=== PATIENT | male | born 1940 | race Caucasian/White ===

== ENCOUNTER 2024-06-13 10:00 | Outpatient (RCR) | payer MEDICARE, SELFPAY ==
[2024-06-02 15:15] LABS: Creatinine* 0.6 mg/dL (0.5-1.5); Estimated Glomerular Filt Rate 95 ml/min
[2024-06-05 16:17] LABS: Hematocrit 41.4 % (37.0-53.0); Hemoglobin* 13.3 gm/dL (13.5-17.5); Immature Granulocytes Abs Auto 0.01 K/uL (0.00-0.30); Immature Granulocytes Pct Auto 0.2 %; Mean Corpuscular HGB Conc 32 gm/dL (32-36); Mean Corpuscular Hemoglobin 29 pg (26-34); Mean Corpuscular Volume 90 fL (80-100); RDW Coefficient of Variation % 13.0 % (11.5-15.5); Red Blood Count 4.58 m/uL (4.30-5.90); White Blood Count* 5.82 K/uL (4.50-11.00)
[2024-06-05 16:30] LABS: Lymphocytes Absolute Auto 0.70 K/uL (0.90-2.90); Slide Review Reflex No
[2024-06-05 16:37] LABS: Albumin* 3.9 g/dL (3.3-5.0)
[2024-06-05 16:38] LABS: Chloride* 100 mmol/L (96-114); Potassium* 4.1 mmol/L (3.6-5.1); Sodium* 135 mmol/L (135-149)
[2024-06-05 16:40] LABS: Anion Gap 13 mEq/L (7-15); Bilirubin Total* 0.3 mg/dL (0.1-1.5); Blood Urea Nitrogen* 19 mg/dL (7-30); Carbon Dioxide* 22 mmol/L (20-32); Creatinine* 0.7 mg/dL (0.5-1.5); Est. Creatinine Clearance* 54.01; Estimated Glomerular Filt Rate 90 ml/min
[2024-06-05 16:41] LABS: Alanine Aminotransferase* 11 U/L (4-50); Alkaline Phosphatase* 95 U/L (40-150); Aspartate Amino Transferase* 13 U/L (12-35); Calcium* 9.4 mg/dL (8.4-10.6); Glucose* 156 mg/dL (60-115); Total Protein* 6.4 g/dL (6.0-8.3)
--- NOTE | 2024-06-06 08:21 | URNOTE ---
Request received for authorization for Carboplatin (J9045), Paclitaxel ([id number]). Prior authorization is not required per [facility] injectable drug list, confirmed with Rep Reema Walters 06/06/24 at 0820. Based on medical necessity and guidelines.
--- NOTE | 2024-06-06 15:46 | ONC.NURNOTE ---
PT referral faxed to [place] [facility] at [phone].
[2024-06-07 10:00] VITALS: BP 105/67; PULSE 74; RESP 16; TEMP 36.4; O2SAT 99
[2024-06-07] MEDS: SODIUM CHLORIDE 0.9 % (FLUSH) 10 ML SYRINGE IVF (11:17)
[2024-06-07] MEDS: ONDANSETRON 2 MG/ML inj 8 MG IVP (11:19)
[2024-06-07] MEDS: FAMOTIDINE 20 MG, diphenhydrAMINE 50 MG in 0.9 % SODIUM CHLORIDE 100 ml 100 ML 309 MG IVPB (11:22)
[2024-06-07] MEDS: dexAMETHasone 20 MG in 0.9 % SODIUM CHLORIDE 100 ml 100 ML 408 MG IVPB (11:51)
[2024-06-07] MEDS: [UNRECOGNIZED DRUG - OTHER] IV (12:46)
[2024-06-07] MEDS: PACLITAXEL IV (12:46)
[2024-06-07] MEDS: TUBING PRIMARY IV (12:46)
[2024-06-07] MEDS: IN LINE IV (12:46)
[2024-06-07] MEDS: MICRON FILTER SET IV (12:46)
[2024-06-07 13:46] VITALS: BMI 28.0
[2024-06-07] MEDS: CARBOplatin 180 MG, TUBING SECONDARY 1 EACH in 0.9 % SODIUM CHLORIDE 250 ml 250 ML 536 MG IVPB (14:01)
--- NOTE | 2024-06-08 14:46 | ONC.NURNOTE ---
RN called patient's Maricel to check in on patient following Joseph's 1st treatment yesterday. Maricel reports he is overall doing well. He was fairly sleepy yesterday after getting home. Discussed with that due to getting IV Benadryl prior to his chemo could be a reason for the increased sleepiness last night. She reports he is doing well today and has not had any nausea. Advised her to call if any questions or concerns come up prior to his appt next week. She was agreeable to the plan.
--- NOTE | 2024-06-09 09:55 | ONC.NURNOTE ---
PSDS =3.5 referral to SS listed: worry, fear, loss of interest, some feelings of worthlessness, listed concerns about relations with sons and other family, concerns regarding self cares, and cares for family, financial an insurance
[2024-06-12 15:18] LABS: Hematocrit 40.9 % (37.0-53.0); Hemoglobin* 13.4 gm/dL (13.5-17.5); Immature Granulocytes Abs Auto 0.01 K/uL (0.00-0.30); Immature Granulocytes Pct Auto 0.1 %; Mean Corpuscular HGB Conc 33 gm/dL (32-36); Mean Corpuscular Hemoglobin 29 pg (26-34); Mean Corpuscular Volume 89 fL (80-100); RDW Coefficient of Variation % 13.0 % (11.5-15.5); Red Blood Count 4.59 m/uL (4.30-5.90); White Blood Count* 6.82 K/uL (4.50-11.00)
[2024-06-12 15:21] LABS: Lymphocytes Absolute Auto 0.70 K/uL (0.90-2.90); Slide Review Reflex No
[2024-06-12 15:58] LABS: Albumin* 3.9 g/dL (3.3-5.0); Chloride* 99 mmol/L (96-114); Sodium* 132 mmol/L (135-149)
[2024-06-12 15:59] LABS: Potassium* 4.4 mmol/L (3.6-5.1)
[2024-06-12 16:01] LABS: Alanine Aminotransferase* 13 U/L (4-50); Alkaline Phosphatase* 87 U/L (40-150); Anion Gap 10 mEq/L (7-15); Aspartate Amino Transferase* 16 U/L (12-35); Bilirubin Total* 0.4 mg/dL (0.1-1.5); Blood Urea Nitrogen* 18 mg/dL (7-30); Calcium* 9.4 mg/dL (8.4-10.6); Carbon Dioxide* 23 mmol/L (20-32); Creatinine* 0.6 mg/dL (0.5-1.5); Est. Creatinine Clearance* 54.01; Estimated Glomerular Filt Rate 95 ml/min; Glucose* 98 mg/dL (60-115); Total Protein* 6.6 g/dL (6.0-8.3)
[2024-06-13 09:56] VITALS: BP 130/76; PULSE 73; RESP 14; TEMP 36.4; O2SAT 95
[2024-06-13 10:47] VITALS: BMI 28.0
[2024-06-13] MEDS: ONDANSETRON 2 MG/ML inj 8 MG IVP (10:57)
[2024-06-13] MEDS: SODIUM CHLORIDE 0.9 % (FLUSH) 10 ML SYRINGE IVF (10:57)
[2024-06-13] MEDS: dexAMETHasone 20 MG in 0.9 % SODIUM CHLORIDE 100 ml 100 ML 408 MG IVPB (11:08)
[2024-06-13] MEDS: FAMOTIDINE 20 MG, diphenhydrAMINE 50 MG in 0.9 % SODIUM CHLORIDE 100 ml 100 ML 309 MG IVPB (11:37)
[2024-06-13] MEDS: TUBING PRIMARY IV (12:18)
[2024-06-13] MEDS: MICRON FILTER SET IV (12:18)
[2024-06-13] MEDS: PACLITAXEL IV (12:18)
[2024-06-13] MEDS: IN LINE IV (12:18)
[2024-06-13] MEDS: [UNRECOGNIZED DRUG - OTHER] IV (12:18)
[2024-06-13] MEDS: CARBOplatin 180 MG, TUBING SECONDARY 1 EACH in 0.9 % SODIUM CHLORIDE 250 ml 250 ML 536 MG IVPB (13:28)
--- NOTE | 2024-06-13 13:38 | W.ED.EKGINT ---
EKG Interpretation EKG Data Attestation: I personally reviewed and interpreted this ECG as follows: Date of EKG Tracin06/08/24 EKG interpretation date: 06/13/24 Prior EKG tracings: available for review Interpretation: EKG is reviewed from above date, compared to old EKG from 05/22/2024. Rhythm is sinus, ventricular rate is 82, QRS is 92 milliseconds, QT is 358, QTC is 418. No acute ST wave changes are noted, in comparison to old EKG, some mild ST flattening is noted in lead 3 which appears to be chronic. Assessment: Normal sinus rhythm, normal EKG with no acute changes.
--- NOTE | 2024-06-13 13:46 | W.ED.EKGINT ---
EKG Interpretation EKG Data Attestation: I personally reviewed and interpreted this ECG as follows: Date of EKG Tracin05/22/24 EKG interpretation date: 06/13/24 Prior EKG tracings: available for review Interpretation: EKG is reviewed from above date, rhythm is sinus, ventricular rate is 90, occasional PACs are noted. Nonspecific ST wave changes are noted, laterally, and inferiorly. In comparison to old EKG from 0 3 05/03/2023, EKG is changed slightly, possibly due to lead placement. Assessment: Normal sinus rhythm, PACs, mild ST wave changes, sinus tachycardia has improved
--- NOTE | 2024-06-13 14:51 | PC.SOCIAL ---
Social work consult: collection systems worker received a consult for this [facility] patient. collection systems worker went to meet with the pt today during his chemo treatment at the [facility], but he was sleeping. This worker talked with pt's , Maricel, for a bit and pt's was interested in information on [employer] [facility] agencies, as she may want to hire some help at home for the pt and to also provide respite to her since she is the pt's main diesel tractor operator. collection systems worker provided the pt's with a copy of [facility] [employer] [facility] resource list. collection systems worker also plans to try to meet with the pt next Wednesday when he is back again for chemo treatment. Pt's stated that she would let the pt know that this worker will be coming next week. Social work to follow-up as needed.
--- NOTE | 2024-06-16 08:43 | ONC.NURNOTE ---
Radiation Oncology notified [facility] that patient will be transferring all his oncology care to [place]. This is due to his change to proton therapy, which is only offered in [place].
== END 2024-10-12 23:59 | disposition home or self-care (01) ==
LOC: CCIC 10:00
PROVIDERS: Physician Assistant; PCP Internal Medicine Hematology & Oncology; Referring Provider Internal Medicine Hematology & Oncology; Visit Provider Clinical Nurse Specialist
DX: Z51.11 Encounter for antineoplastic chemotherapy (principal); C34.11 Malignant neoplasm of upper lobe, right bronchus or lung; C77.1 Secondary and unspecified malignant neoplasm of intrathoracic lymph nodes; E11.9 Type 2 diabetes mellitus without complications; R63.4 Abnormal weight loss
CPT/HCPCS: 36415; 80053; 82565; 83735; 85025; 93010; 96367; 96368; 96375; 96413; 96417; 97802; 97803; 99202; 99205; 99211; 99215; J1100; J1200; J2405; J7050; J9045; J9267; S0028